=== PATIENT | male | born 1995 | race Caucasian/White ===

== ENCOUNTER 2020-08-24 15:44 | Emergency (ER) | payer OTHER, SELFPAY ==
--- NOTE | 2020-08-24 | XR_ITS ---
EXAMINATION: RIGHT ANKLE 3 VIEWS CLINICAL INFORMATION: Right ankle pain. Twisting injury. Swelling. COMPARISON: None. TECHNIQUE: AP, lateral, oblique views of the right ankle were obtained. FINDINGS: There is soft tissue swelling overlying the lateral malleolus. There are no fractures or dislocations. There is no ankle joint effusion. XR/XR ankle RT min 3V IMPRESSION: Soft tissue swelling without fracture or dislocation.
[2020-08-24 16:16] VITALS: BP 155/95; PULSE 80; RESP 18; TEMP 36.1; O2SAT 98; BMI 38.3
--- NOTE | 2020-08-24 17:39 | ED.LOWEXIN ---
HPI - Extremity Injury (Lower) General Chief Complaint: Extremity Injury, Lower Stated Complaint: ankle pain Time Seen by Provider: 08/24/20 17:39 Source: patient Mode of arrival: wheelchair Limitations: no limitations History of Present Illness HPI Narrative: 25-year-old otherwise healthy presenting with complaint of right ankle pain going up the stairs missed step and twisted his ankle. States having swelling and pain worsening with exertion /ambulation. No other fall or injury. Occurred today at home. Type of Injury: eversion Place: home Severity: moderate Severity scale (1-10): 5 Relieving factors: nothing Exacerbating factors: weight bearing Other symptoms: none Treatments prior to arrival: cold therapy Related Data Previous Rx's Medication Instructions Recorded ibuprofen 800 mg PO Q8H PRN #30 tab 08/24/20 Allergies Allergy/AdvReac Type Severity Reaction Status Date / Time Penicillins Allergy Anaphylaxis Verified 08/24/20 16:23 APPLES AdvReac Diarrhea Uncoded 08/24/20 16:23 Review of Systems Review of Systems: Constitutional: No Weight loss, No Fever, No Chills, No Night Sweats, No Fatigue, No Malaise ENT/Mouth: No Hearing loss, No Ear Pain, No Nasal Congestion, No Sinus Pain, No Hoarseness, No sore throat, No Rhinorrhea, No Swallowing Difficulty Eyes: No Eye Pain, No Swelling, No Redness, No Foreign Body, No Discharge, No Vision Changes Cardiovascular: No Chest Pain, No SOB, No Dyspnea on Exertion, No Orthopnea, No Edema, No Palpitations Respiratory: No Cough, No Sputum, No Wheezing, No Smoke Exposure, No Dyspnea Musculoskeletal: As noted in HPI Skin: No Skin Lesions, No rash Neuro: No Weakness, No Numbness, No Paresthesias, No Loss of Consciousness, No Dizziness, No Headache Psych: Heme/Lymph: No Bruising, No Bleeding,No Lymphadenopathy Endocrine: No Polyuria, No Polydipsia, No Temperature Intolerance Yes all other systems are reviewed and are negative [facility] Past Medical History Medical History (Updated 08/24/20 @ 17:44 by Cory Manzano NP) Thyroid cancer Surgical History (Updated 08/24/20 @ 16:20 by Claire Galindo) History of thyroid surgery Social History Social History Smoking Status: Former smoker Use of substances other than those prescribed or required for medical reasons: No Advance Directives: No Advance Directives Information Provided: No Physical Exam Vital Signs: Vital Signs: Vital Signs Temp Pulse Resp BP Pulse Ox 08/24/20 16:16 96.9 F 80 18 155/95 H 98 Body Mass Index 38.3 reviewed Const: General: cooperative and healthy appearing; No acute distress or intoxicated appearing Nutritional Appearance: average body habitus Orientation/consciousness: patient oriented x3 HENMT: Head: Yes normal to inspection Ears: hearing grossly normal bilaterally Neck: Neck: Yes normal visual inspection, No positive Brudzinski's sign, No positive Kernig's sign and No tender Thyroid: Thyroid normal Chest: Chest palpation & inspection: normal inspection of the chest Resp: Effort & Inspection: normal respiratory effort Cardio: Jugular venous distension: no JVD : General: Yes no CVA tenderness Back/Spine/Pelvis: Back: no CVA tenderness Skin: General skin exam: no rashes or lesions noted Neuro: General: patient oriented x3 Extrem: Other: right ankle swelling to the lateral aspect. General: Yes normal to inspection MDM - Extremity Injury (Lower) MDM Narrative Medical decision making narrative: aircast/crutches Differential Diagnosis Differential diagnosis: Likely ankle sprain and strain and ankle fracture; Unlikely acute internal derangement of knee, fracture of femur, fracture of hip, puncture wound of foot and fracture of toe Medical Records Attestation: I reviewed the patient's medical records. Imaging Data Ankle x-ray: Radiologist's impression: [address] [address] XRay Report Signed Patient: Donald CancinoMR#: [id number] : 1995Acct:[id number] Age/Sex: 25 / MADM Date: 08/24/20 Loc: HO.ED Attending Dr: Ordering Physician: CORY MANZANO NP Date of Service: 08/24/20 Procedure(s): XR ankle RT min 3V Accession Number(s): [id number] cc: CORY MANZANO NP~ EXAMINATION: RIGHT ANKLE 3 VIEWS CLINICAL INFORMATION: Right ankle pain. Twisting injury. Swelling. COMPARISON: None. TECHNIQUE: AP, lateral, oblique views of the right ankle were obtained. FINDINGS: There is soft tissue swelling overlying the lateral malleolus. There are no fractures or dislocations. There is no ankle joint effusion. XR/XR ankle RT min 3V IMPRESSION: Soft tissue swelling without fracture or dislocation. Dictated By:RAISSA BARFIELD MD Signed By:<Electronically signed by RAISSA BARFIELD MD in OV>08/24/20 1710 DD/ 1632 TD/TT: Sleeve Bottom Feller: WP Discharge Plan Discharge Clinical Impression: Ankle sprain and strain Patient Disposition: Home, Self-Care Instructions: Ankle Sprain (ED) Additional Instructions: ice, elevate, compress is Use crutches and Aircast as instructed Return if any concerns or worsening symptoms otherwise follow up with her primary care doctor as discussed Thank you Prescriptions: New ibuprofen 800 mg tablet 800 mg PO Q8H PRN (Reason: pain) Qty: 30 RF: 0 Referrals: Jonathan Gilmore MD [Physician] - 1 week Stand Alone Forms: Work/School Release
== END 2020-08-24 17:59 | disposition home or self-care (01) ==
PROVIDERS: Emergency Provider Emergency Medicine
DX: S93.401A Sprain of unspecified ligament of right ankle, initial encounter (principal); M25.571 Pain in right ankle and joints of right foot; W10.9XXA Fall (on) (from) unspecified stairs and steps, initial encounter; Y93.01 Activity, walking, marching and hiking; Y92.009 Unspecified place in unspecified non-institutional (private) residence as the place of occurrence of the external cause; Z87.891 Personal history of nicotine dependence
CPT/HCPCS: 73610; 99283

== ENCOUNTER 2020-09-14 14:52 | Outpatient (REF) | payer OTHER, SELFPAY ==
--- NOTE | 2020-09-14 14:53 | XR_ITS ---
EXAMINATION: XR FOOT, RIGHT CLINICAL INFORMATION: Pain in the right foot COMPARISON: X-rays of the right ankle August 2020 TECHNIQUE: AP, lateral, and oblique views of the right foot. FINDINGS: The bones and soft tissues are normal. No fracture. Alignment is anatomic. Joint spaces are maintained. XR/XR foot RT min 3V IMPRESSION: Normal right foot.
== END 2020-09-14 14:53 | disposition home or self-care (01) ==
LOC: HO.HOSX 14:52
PROVIDERS: Visit Provider Physician Assistant
DX: S93.601A Unspecified sprain of right foot, initial encounter (principal)
CPT/HCPCS: 73630

== ENCOUNTER → 2020-10-11 12:55 | Outpatient (BNVA) | payer OTHER, SELFPAY | PROVIDERS: Visit Provider Physician Assistant | DX: Z76.89 Persons encountering health services in other specified circumstances (principal) ==

== ENCOUNTER 2020-10-13 12:29 | Outpatient (REF) | payer OTHER, SELFPAY ==
[2020-10-13 13:01] LABS: MANUAL DIFF FLAG NO
[2020-10-13 13:30] LABS: Alanine Aminotransferase 78 U/L (0-40); Albumin Level 4.9 g/dL (3.5-5.0); Alkaline Phosphatase 85 U/L (39-117); Anion Gap 13 (12-20); Aspartate Amino Transferase 46 U/L (5-37); Bilirubin Total 0.5 mg/dL (0.0-1.0); Blood Urea Nitrogen 13 mg/dL (9-16); Calcium 9.6 mg/dL (8.4-10.2); Carbon Dioxide 31 mmol/L (22-29); Chloride 99 mmol/L (96-108); Cholesterol 444 mg/dL; Estimated Glomerular Filt Rate 49; Glucose Random 102 mg/dL (60-115); HDL Cholesterol 47 mg/dL; LDL Cholesterol Calculated 349 mg/dl; Sodium 139 mmol/L (135-145); Total Protein 8.8 g/dL (6.5-8.0); Triglycerides 243 mg/dL
[2020-10-13 13:35] LABS: Basophils Percent Auto 0.3 % (0-2); Eosinophils Absolute Auto 0.1 X10*3/uL (0.0-0.4); Eosinophils Percent Auto 0.9 % (0-4); Hematocrit 48.2 % (42-52); Hemoglobin 15.5 g/dl (14.0-18.0); Imm Gran Abs Auto 0.01 X10*3/uL (0.00-0.03); Imm Gran Pct Auto 0.2 % (0.0-0.4); Lymphocytes Absolute Auto 2.4 X10*3/uL (1.2-4.9); Lymphocytes Percent Auto 36.6 % (20-40); Mean Corpuscular HGB Conc 32.2 g/dl (31.0-36.0); Mean Corpuscular Hemoglobin 27.8 pg (27.0-33.0); Mean Corpuscular Volume 86.5 fL (80-98); Mean Platelet Volume 11.1 fL (9.4-12.4); Monocytes Absolute Auto 0.4 X10*3/uL (0.1-1.2); Monocytes Percent Auto 5.6 % (2-11); Neutrophils Absolute Auto 3.6 X10*3/uL (2.0-8.3); Neutrophils Percent Auto 56.4 % (45-73); Platelet Count 278 X10*3/uL (160-400); Red Blood Count 5.57 X10*6/uL (4.60-5.80); Red Cell Distribution Width 14.6 % (11.0-16.0); White Blood Count 6.5 X10*3/uL (4.8-10.8)
[2020-10-13 13:44] LABS: Estimated Average Glucose 120 mg/dL; Hemoglobin A1C 163.1905 umol/L; Hemoglobin A1c % 5.8 %
[2020-10-13 17:37] LABS: Thyroid Stimulating Hormone > 100.00 uIU/mL (0.32-4.0)
== END 2020-10-13 12:30 | disposition home or self-care (01) ==
LOC: HO.LAB 12:29
PROVIDERS: PCP Internal Medicine; Visit Provider Internal Medicine
DX: E66.01 Morbid (severe) obesity due to excess calories (principal); E89.0 Postprocedural hypothyroidism; I10 Essential (primary) hypertension; S93.491S Sprain of other ligament of right ankle, sequela; Z00.01 Encounter for general adult medical examination with abnormal findings; Z85.850 Personal history of malignant neoplasm of thyroid
CPT/HCPCS: 36415; 80053; 80061; 83036; 84443; 85025

== ENCOUNTER 2020-12-25 11:00 | Outpatient (RCR) | payer OTHER, SELFPAY ==
--- NOTE | 2020-11-06 11:50 | MHC.PT.EP ---
[facility] [place] Office [place] [facility] [place] Office [address] Frederick Beckham [address] [phone] F: [phone] F: [phone] F: [phone] F: [phone] Physical Therapy Plan of Care Date of Evaluation: 11/06/20 Date of Surgery: N/A Diagnosis: unspecified sprain of right foot, initial encounter Assessment: pt presents w/ range, strength, and functional movement pattern impairments secondary to ankle sprain sustained in August 2020. pt presents to physical therapy with pain, decreased range of motion, decreased strength, impaired functional mobility, impaired postural awareness, and gait deviations. pt is a good candidate for skilled PT due to age, potential remediation of impairments, typical disease/condition progression and prognosis, comorbidities, and motivation. pt would benefit from tailored strengthening and stretching exercise program, functional training, gait training, postural re-training, neuromuscular re-education, modalities as needed for pain, and equipment safety demonstration. Frequency and Duration: The patient will be seen 2x/wk for 5 wks Short Term Goals: pt will be I w/ HEP to promote self-management of condition. pt will improve R ankle DF to neutral to normalize gait pattern over even ground. Chemistry Faculty Member Goals: pt will report statistically significant improvement in self-reported outcome measure, LEFI, to promote return to PLOF. pt will report <1/10 R ankle pain w/ standing for full work shift (>8 hr) to facilitate full return to work. Treatment Plan: Modalities to reduce pain, spasms and effusion. Manual therapy to restore motion and function. Therapeutic exercise to improve strength and flexibility. Neuromuscular re-education for posture and balance. Therapeutic activities to return to functional activities of daily living. Electronically signed by: Briana Weems PT, DPT Please sign and return to therapist. Thank you for your referral.
--- NOTE | 2020-12-26 14:46 | MHC.PT.DC ---
[facility] [place] [facility] [place] Office [place] Office [address] Frederick Beckham [address] [phone] F: [phone] F: [phone] F: [phone] F: [phone] Physical Therapy Discharge Report Diagnosis: unspecified sprain of right foot, initial encounter Date of Surgery: N/A Date of Evaluation: 11/06/20 Date of Discharge: 12/26/20 Treatments to Date: 15 Cancellations to Date: 0 No Shows to Date: 0 Discharge Status: Achieved Goals Improved Function Independent with HEP Discharge Summary: The patient has improved regarding his pain severity, frequency, and ability to tolerate therapeutic exercises and functional activities. He reports only mild pain after being up on his feet all day at work. He is able to ascend and descend the stairs with no pain. He has a symmetrical gait pattern. He is independent with his home exercise program. The patient is discharged from this physical therapy plan of care at this time. Electronically signed by: Briana Weems PT, DPT Please sign and return to therapist. Thank you for your referral.
== END 2020-12-26 14:46 | disposition other institution (70) ==
LOC: HO.PT 11:00
PROVIDERS: PCP Internal Medicine; Visit Provider Physician Assistant
DX: S93.601D Unspecified sprain of right foot, subsequent encounter (principal)
CPT/HCPCS: 97110; 97112; 97140; 97161; 97164; 97530

== ENCOUNTER 2021-01-23 09:02 | Outpatient (REF) | payer OTHER, SELFPAY ==
--- NOTE | ~2021-01-23 | US_ITS ---
EXAMINATION: US RETROPERITONEAL LIMITED (RENAL ONLY) CLINICAL INFORMATION: Chronic kidney disease stage III. COMPARISON: None TECHNIQUE: Real-time imaging of the kidneys. FINDINGS: RIGHT KIDNEY: 10.9 x 6.4 x 6.2 cm (SAG x AP x TRV). The kidney is normal in size, contour, and echogenicity. Renal cortical thickness is normal. No calculi or focal parenchymal lesions. No hydronephrosis. LEFT KIDNEY: 11.1 x 6.6 x 4.6 cm (SAG x AP x TRV). The kidney is normal in size, contour, and echogenicity. Renal cortical thickness is normal. No calculi or focal parenchymal lesions. No hydronephrosis. US/US renal BI IMPRESSION: Normal renal ultrasound.
[2021-01-23 10:33] LABS: MANUAL DIFF FLAG NO
[2021-01-23 10:37] LABS: Basophils Percent Auto 0.5 % (0-2); Eosinophils Absolute Auto 0.1 X10*3/uL (0.0-0.4); Eosinophils Percent Auto 1.3 % (0-4); Hematocrit 44.7 % (42-52); Hemoglobin 14.7 g/dl (14.0-18.0); Imm Gran Abs Auto 0.02 X10*3/uL (0.00-0.03); Imm Gran Pct Auto 0.3 % (0.0-0.4); Lymphocytes Absolute Auto 2.4 X10*3/uL (1.2-4.9); Mean Corpuscular HGB Conc 32.9 g/dl (31.0-36.0); Mean Corpuscular Hemoglobin 29.2 pg (27.0-33.0); Mean Corpuscular Volume 88.9 fL (80-98); Mean Platelet Volume 10.8 fL (9.4-12.4); Monocytes Absolute Auto 0.5 X10*3/uL (0.1-1.2); Monocytes Percent Auto 6.4 % (2-11); Neutrophils Absolute Auto 4.5 X10*3/uL (2.0-8.3); Neutrophils Percent Auto 59.5 % (45-73); Platelet Count 265 X10*3/uL (160-400); Red Blood Count 5.03 X10*6/uL (4.60-5.80); Red Cell Distribution Width 13.5 % (11.0-16.0); White Blood Count 7.5 X10*3/uL (4.8-10.8)
[2021-01-23 12:46] LABS: Anion Gap 17 (12-20); Blood Urea Nitrogen 15 mg/dL (9-16); Calcium 9.5 mg/dL (8.4-10.2); Carbon Dioxide 24 mmol/L (22-29); Chloride 103 mmol/L (96-108); Estimated Glomerular Filt Rate > 60; Potassium 4.4 mmol/L (3.3-5.1); Sodium 140 mmol/L (135-145)
== END 2021-01-23 09:03 | disposition home or self-care (01) ==
LOC: HO.US 09:02
PROVIDERS: Absent Provider Internal Medicine Hypertension Specialist; PCP Internal Medicine; Visit Provider Orthopaedic Surgery
DX: N18.31 Chronic kidney disease, stage 3a (principal)
CPT/HCPCS: 36415; 76775; 80051; 82310; 82565; 84520; 85025

== ENCOUNTER 2021-01-24 | Outpatient (REF) | payer OTHER, SELFPAY ==
[2021-01-24 14:16] LABS: Creatinine (CrCl) 1.33 mg/dL (0.5-1.4)
[2021-01-24 14:17] LABS: Total Volume 24 Hour Urine 1050 mL
[2021-01-24 14:38] LABS: Creatinine Clearance 100.6 mL/min (85-125); Creatinine, 24Hr Urine 1.9 G/Day (1.0-2.0); Creatinine, mg/dL 183.63; Protein 24 Hr Urine 147 mg/Day (<150); Protein mg/dL 14 mg/dL
== END 2021-01-24 00:01 | disposition home or self-care (01) ==
LOC: HO.LNP
PROVIDERS: Visit Provider Internal Medicine Hypertension Specialist
DX: N18.31 Chronic kidney disease, stage 3a (principal)
CPT/HCPCS: 82575; 84156

== ENCOUNTER 2021-02-09 09:30 | Outpatient (REF) | payer OTHER, SELFPAY ==
[2021-02-09 10:01] LABS: COVID-19 Test Positive (Negative); IDNOW Serial# 55D5AD1C
== END 2021-02-09 09:31 | disposition home or self-care (01) ==
LOC: HO.LAB 09:30
PROVIDERS: Visit Provider Internal Medicine
DX: Z20.822 Contact with and (suspected) exposure to COVID-19 (principal)
CPT/HCPCS: 36415; 87635; C9803

== ENCOUNTER 2021-02-19 13:42 | Outpatient (REF) | payer OTHER, SELFPAY ==
[2021-02-19 14:23] LABS: COVID-19 Test Negative (Negative); IDNOW Serial# 55D5AD1C
== END 2021-02-19 13:43 | disposition home or self-care (01) ==
LOC: HO.LAB 13:42
PROVIDERS: Visit Provider Internal Medicine
DX: Z20.822 Contact with and (suspected) exposure to COVID-19 (principal)
CPT/HCPCS: 36415; 87635; C9803

== ENCOUNTER 2023-06-06 10:34 | Outpatient (REF) | payer MEDICAID, SELFPAY ==
[2023-06-06 15:18] LABS: Alanine Aminotransferase 107 U/L (0-40); Albumin Level 4.6 g/dL (3.5-5.0); Alkaline Phosphatase 78 U/L (39-117); Anion Gap 20 (12-20); Aspartate Amino Transferase 52 U/L (5-37); Bilirubin Direct 0.2 mg/dL (0.0-0.5); Bilirubin Total 0.6 mg/dL (0.0-1.0); Blood Urea Nitrogen 9 mg/dL (9-16); Calcium 9.8 mg/dL (8.4-10.2); Carbon Dioxide 20 mmol/L (22-29); Chloride 104 mmol/L (96-108); Cholesterol 129 mg/dL; Estimated Glomerular Filt Rate > 60; Glucose Random 140 mg/dL (60-115); HDL Cholesterol 36 mg/dL; Iron 110 mcg/dL (45-160); LDL Cholesterol Calculated 68 mg/dl; Percent Iron Saturation 33 % (15-50); Potassium 3.9 mmol/L (3.3-5.1); Sodium 140 mmol/L (135-145); Total Iron Binding Capacity 336 mcg/dL (228-428); Total Protein 8.7 g/dL (6.5-8.0); Triglycerides 129 mg/dL; Unsaturated Iron Binding 226 ug/dL
[2023-06-06 15:25] LABS: Ferritin 145 ng/mL (20-250); TSH reflex Free T4 25.18 uIU/mL (0.32-4.0)
[2023-06-06 16:51] LABS: Free T4 (Free Thyroxine) 0.89 ng/dL (0.71-1.85)
[2023-06-07 04:26] LABS: HIV AB/AG Nonreactive (Nonreactive); HIV Num 1 0.05 S/CO (0.00-0.99)
[2023-06-07 04:31] LABS: ~Hepatitis C Antibody Nonreactive (Nonreactive)
[2023-06-09 18:54] LABS: Ceruloplasmin 32 mg/dL (18-36)
[2023-06-11 16:03] LABS: Mitochondrial Antibodies NEGATIVE (NEGATIVE)
== END 2023-06-06 10:35 | disposition home or self-care (01) ==
LOC: HO.HHCL 10:34
PROVIDERS: Visit Provider Family Medicine
DX: Z11.4 Encounter for screening for human immunodeficiency virus [HIV] (principal); R74.8 Abnormal levels of other serum enzymes; E78.5 Hyperlipidemia, unspecified; A64 Unspecified sexually transmitted disease; E03.9 Hypothyroidism, unspecified; I10 Essential (primary) hypertension
CPT/HCPCS: 36415; 80048; 80061; 80076; 82390; 82728; 83540; 84439; 84443; 86255; 86256; 86803; 87389

== ENCOUNTER 2023-06-10 12:08 | Outpatient (REF) | payer MEDICAID, SELFPAY ==
[2023-06-10 14:34] LABS: Creatinine Urine 209.86 mg/dL; Microalbum/Creatinine Ratio Ur 4.7 ug/mg cr
== END 2023-06-10 12:09 | disposition home or self-care (01) ==
LOC: HO.HHCLNP 12:08
PROVIDERS: Visit Provider Family Medicine
DX: I10 Essential (primary) hypertension (principal)
CPT/HCPCS: 82043

== ENCOUNTER 2023-07-18 11:15 | Outpatient (REF) | payer MEDICAID, SELFPAY ==
[2023-07-18 15:58] LABS: Alanine Aminotransferase 76 U/L (0-40); Albumin Level 4.6 g/dL (3.5-5.0); Alkaline Phosphatase 72 U/L (39-117); Aspartate Amino Transferase 45 U/L (5-37); Bilirubin Direct 0.1 mg/dL (0.0-0.5); Bilirubin Total 0.3 mg/dL (0.0-1.0); Total Protein 8.6 g/dL (6.5-8.0)
[2023-07-18 16:43] LABS: Free T4 (Free Thyroxine) 1.02 ng/dL (0.71-1.85)
== END 2023-07-18 11:16 | disposition home or self-care (01) ==
LOC: HO.HHCL 11:15
PROVIDERS: Visit Provider Family Medicine
DX: E03.9 Hypothyroidism, unspecified (principal); E11.00 Type 2 diabetes mellitus with hyperosmolarity without nonketotic hyperglycemic-hyperosmolar coma (NKHHC)
CPT/HCPCS: 36415; 80076; 84439; 84443

== ENCOUNTER 2023-10-13 13:28 | Outpatient (REF) | payer MEDICAID, SELFPAY | END 2023-10-13 13:29 | disposition home or self-care (01) | LOC: HO.HHCLNP 13:28 | PROVIDERS: Visit Provider Emergency Medicine | DX: R05.9 Cough, unspecified (principal) | CPT/HCPCS: 87070 ==

== ENCOUNTER 2024-07-22 10:23 | Outpatient (REF) | payer OTHER, SELFPAY ==
[2024-07-22 11:18] LABS: MANUAL DIFF FLAG NO
[2024-07-22 11:45] LABS: Basophils Percent Auto 0.4 % (0-2); Eosinophils Absolute Auto 0.1 X10*3/uL (0.0-0.4); Eosinophils Percent Auto 0.7 % (0-4); Hemoglobin 13.5 g/dl (14.0-18.0); Imm Gran Abs Auto 0.03 X10*3/uL (0.00-0.03); Imm Gran Pct Auto 0.4 % (0.0-0.4); Lymphocytes Absolute Auto 1.8 X10*3/uL (1.2-4.9); Lymphocytes Percent Auto 25.6 % (20-40); Mean Corpuscular HGB Conc 32.9 g/dl (31.0-36.0); Mean Corpuscular Hemoglobin 27.4 pg (27.0-33.0); Mean Corpuscular Volume 83.3 fL (80.0-98.0); Mean Platelet Volume 10.5 fL (9.4-12.4); Monocytes Absolute Auto 0.5 X10*3/uL (0.1-1.2); Monocytes Percent Auto 6.5 % (2-11); Neutrophils Absolute Auto 4.8 x10*3/uL (2.0-8.3); Neutrophils Percent Auto 66.4 % (45-73); Platelet Count 281 X10*3/uL (160-400); Red Blood Count 4.92 X10*6/uL (4.60-5.80); Red Cell Distribution Width 12.9 % (11.0-16.0); White Blood Count 7.2 X10*3/uL (4.8-10.8)
[2024-07-22 11:49] LABS: Estimated Average Glucose 171 mg/dL; Hemoglobin A1c % 7.6 % (<6.0)
[2024-07-22 12:22] LABS: Alanine Aminotransferase 59 U/L (0-40); Albumin Level 4.2 g/dL (3.5-5.0); Alkaline Phosphatase 81 U/L (39-117); Anion Gap 11 (12-20); Aspartate Amino Transferase 38 U/L (5-37); Bilirubin Direct 0.1 mg/dL (0.0-0.5); Bilirubin Total 0.4 mg/dL (0.0-1.0); Blood Urea Nitrogen 11 mg/dL (9-16); Calcium 9.6 mg/dL (8.4-10.2); Carbon Dioxide 26 mmol/L (22-29); Chloride 109 mmol/L (96-108); Cholesterol 119 mg/dL (<200); Estimated Glomerular Filt Rate > 60; Glucose Random 126 mg/dL (60-115); HDL Cholesterol 32 mg/dL (>40); Iron 64 mcg/dL (45-160); LDL Cholesterol Calculated 54 mg/dL (<100); Percent Iron Saturation 21 % (15-50); Potassium 4.2 mmol/L (3.3-5.1); Sodium 142 mmol/L (135-145); Total Iron Binding Capacity 298 mcg/dL (228-428); Triglycerides 169 mg/dL (<150); Unsaturated Iron Binding 234 ug/dL
[2024-07-22 12:37] LABS: HBS Num1 1.71 mIU/mL (0-7.99); HBc Num1 0.15 S/CO (0.00-0.79); HBsAGNum1 0.41 S/CO (0.00-0.99); Hepatitis A Antibody IgM 0.13 Index (0-0.79); Hepatitis B Core Antibody Nonreactive (Nonreactive); Hepatitis B Surface Antigen Negative (Negative); ~HepC Num1 0.15 S/CO (0.00-0.79); ~Hepatitis A Antibody IgM Nonreactive (Nonreactive); ~Hepatitis B Surface Antibody NONREACTIVE (Nonreactive); ~Hepatitis C Antibody Nonreactive (Nonreactive)
[2024-07-22 12:41] LABS: Ferritin 167 ng/mL (20-250); TSH reflex Free T4 0.12 uIU/mL (0.32-4.0)
[2024-07-22 13:21] LABS: Free T4 (Free Thyroxine) 1.38 ng/dL (0.71-1.85)
[2024-07-23 22:18] LABS: Ceruloplasmin 29 mg/dL (14-30)
[2024-07-26 13:08] LABS: Alpha Fetoprotein 3.6 ng/mL (<6.1)
[2024-07-26 13:49] LABS: Anti Nuclear Antibody Screen NEGATIVE (NEGATIVE)
[2024-07-27 12:23] LABS: Smooth Muscle Antibody <20 U (<20)
[2024-07-28 11:34] LABS: Mitochondrial Antibodies NEGATIVE (NEGATIVE)
== END 2024-07-22 10:24 | disposition home or self-care (01) ==
LOC: HO.HHCL 10:23
PROVIDERS: Visit Provider Family Medicine
DX: E11.00 Type 2 diabetes mellitus with hyperosmolarity without nonketotic hyperglycemic-hyperosmolar coma (NKHHC) (principal); E78.2 Mixed hyperlipidemia; E03.9 Hypothyroidism, unspecified; R74.8 Abnormal levels of other serum enzymes; K62.5 Hemorrhage of anus and rectum
CPT/HCPCS: 36415; 80048; 80061; 80076; 82105; 82390; 82728; 83036; 83540; 84439; 84443; 85025; 86015; 86038; 86381; 86704; 86706; 86709; 86803; 87340

== ENCOUNTER 2024-10-06 10:13 | Outpatient (REF) | payer MEDICAID, SELFPAY ==
[2024-10-06 11:40] LABS: Alanine Aminotransferase 47 U/L (0-40); Albumin Level 4.5 g/dL (3.5-5.0); Alkaline Phosphatase 83 U/L (39-117); Aspartate Amino Transferase 40 U/L (5-37); Bilirubin Direct 0.1 mg/dL (0.0-0.5); Bilirubin Total 0.3 mg/dL (0.0-1.0); Cholesterol 124 mg/dL (<200); HDL Cholesterol 36 mg/dL (>40); LDL Cholesterol Calculated 59 mg/dL (<100); Total Protein 8.6 g/dL (6.5-8.0); Triglycerides 146 mg/dL (<150)
[2024-10-06 11:56] LABS: TSH reflex Free T4 1.04 uIU/mL (0.32-4.0)
[2024-10-06 12:06] LABS: Estimated Average Glucose 186 mg/dL; Hemoglobin A1C 230.9323 umol/L; Hemoglobin A1c % 8.1 % (<6.0); Total Hemoglobin (HGBA1C) 3540.8459 umol/L
== END 2024-10-06 10:14 | disposition home or self-care (01) ==
LOC: HO.HHCL 10:13
PROVIDERS: Visit Provider Family Medicine
DX: E11.00 Type 2 diabetes mellitus with hyperosmolarity without nonketotic hyperglycemic-hyperosmolar coma (NKHHC) (principal); E03.9 Hypothyroidism, unspecified; R74.8 Abnormal levels of other serum enzymes; E78.49 Other hyperlipidemia
CPT/HCPCS: 36415; 80061; 80076; 83036; 84443

== ENCOUNTER 2024-11-19 08:44 | Outpatient (REF) | payer OTHER, SELFPAY ==
--- NOTE | ~2024-11-19 | US_ITS ---
CLINICAL HISTORY: chornic transaminitis Exam: 1. US abdomen complete 2. Duplex ultrasound of the main portal vein. Comparison: US - US RENAL BI - 01/23/21 09:14 EDT Findings: The visualized pancreas is normal. The aorta and inferior vena cava are normal caliber. The liver is normal in size. Dense increased hepatic echotexture without focal lesion or intrahepatic biliary ductal dilatation. The common duct is 4 mm in diameter. The gallbladder is normal. There is no sonographic Marvin sign. The right kidney is 11.6 cm in length. The left kidney is 12.3 cm in length. The spleen is normal. No ascites. Duplex evaluation of the main portal vein was performed. This included real-time grayscale, color spectral Doppler analysis, and color Doppler flow imaging. Main portal vein is patent with hepatopetal flow. IMPRESSION: Densely echogenic liver. This can be seen with fatty infiltration or medical liver disease. Otherwise, unremarkable abdominal ultrasound. This document has been electronically signed by: James Anders MD on 11/20/2024 08:37:34
== END 2024-11-19 08:45 | disposition home or self-care (01) ==
LOC: HO.US 08:44
PROVIDERS: PCP Family Medicine; Visit Provider Family Medicine
DX: R74.8 Abnormal levels of other serum enzymes (principal)
CPT/HCPCS: 76700

== ENCOUNTER → 2024-11-19 08:46 | Outpatient (BNV) | payer OTHER, SELFPAY | PROVIDERS: PCP Family Medicine; Visit Provider Radiology Diagnostic Radiology | DX: R74.8 Abnormal levels of other serum enzymes (principal) | CPT/HCPCS: 76700 ==

== ENCOUNTER 2025-02-28 10:18 | Outpatient (REF) | payer SELFPAY ==
[2025-02-28 11:44] LABS: Alanine Aminotransferase 52 U/L (0-40); Albumin Level 4.6 g/dL (3.5-5.0); Alkaline Phosphatase 94 U/L (39-117); Anion Gap 12 (12-20); Aspartate Amino Transferase 36 U/L (5-37); Bilirubin Direct 0.1 mg/dL (0.0-0.5); Bilirubin Total 0.4 mg/dL (0.0-1.0); Blood Urea Nitrogen 13 mg/dL (9-16); Calcium 9.7 mg/dL (8.4-10.2); Carbon Dioxide 27 mmol/L (22-29); Chloride 102 mmol/L (96-108); Cholesterol 142 mg/dL (<200); Estimated Glomerular Filt Rate > 60; Glucose Random 140 mg/dL (60-115); HDL Cholesterol 40 mg/dL (>40); LDL Cholesterol Calculated 71 mg/dL (<100); Sodium 137 mmol/L (135-145); Total Protein 8.3 g/dL (6.5-8.0); Triglycerides 156 mg/dL (<150)
[2025-02-28 11:54] LABS: Creatinine Urine 52.86 mg/dL; Microalbumin Urine < 5.0 mg/L
--- OUTSIDE RECORDS SUMMARY | 2025-02-28 11:58 | XMS_ITS | Clinical Summary ---
Author Organization [facility] Facility Address [address] [place] [address] Care Team Providers Care Flare Man Name Role Phone Sharon Guerra MD Primary Care Provider Allergies Active Allergy Reactions Criticality Noted Date Comments Apple Juice Hives 01/04/2021 Penicillin G 10/03/2022 Other reaction(s): Anaphyllactic Penicillins Anaphylaxis High 01/04/2021 Medications levothyroxine (SYNTHROID, LEVOTHROID) 200 MCG tablet Take 200 mcg by mouth 1 (one) time each day 10/19/2020 Active rosuvastatin (CRESTOR) 40 MG tablet Take 40 mg by mouth 1 (one) time each day 12/09/2020 Active lisinopril-hydro CHLOROthiazide (PRINZIDE,ZESTOR ETIC) 20-12.5 MG per tablet Take 1 tablet by mouth 1 (one) time each day Active ezetimibe (ZETIA) 10 MG tablet Take 10 mg by mouth 1 (one) time each day Active Active Problems Problem Noted Date Diagnosed Date Stage 3a chronic kidney disease 10/03/2022 Chronic kidney disease 01/04/2021 Papillary thyroid carcinoma 01/04/2021 Overview (01/04/2021): Total Thyroidectomy 2019 Resolved Problems Problem Noted Date Diagnosed Date Resolved Date Cancer 01/04/2021 01/04/2021 Overview (01/04/2021): Thyroid cancer Family History Medical History Relation Comments Diabetes Father Diabetes Mother Cancer Paternal Grandfather Relation Status Comments Father Mother Paternal Grandfather Social History Tobacco Use Types Packs/Day Years Used Date Smoking Tobacco: Never Smokeless Tobacco: Never Tobacco Cessation:Counseling Given: No Alcohol Use Standard Drinks/Week Comments Yes 0 (1 standard drink = 0.6 oz pur e alcohol) 1 a month Sex and Gender Information Value Date Recorded Sex Assigned at Not on file Legal Sex Male 4:58 PM EST Gender Identity Not on file Sexual Orientation Not on file Last Filed Vital Signs Vital Sign Reading Time Taken Comments Blood Pressure 146/62 01/04/2021 1:07 PM EST Pulse 86 01/04/2021 1:07 PM EST Temperature - - Respiratory Rate - - Oxygen Saturation 97% 01/04/2021 1:07 PM EST Inhaled Oxygen Concentration - - Weight 141 kg (310 lb) 10/03/2022 2:37 PM EST Height 180.3 cm (5' 11 ) 02/09/2021 2:42 PM EDT Body Mass Index 43.24 02/09/2021 2:42 PM EDT Plan of Treatment Health Maintenance Due Date Last Done Comments Hepatitis B Vaccine (1 of 3 - 19+ 3-dose series) 02/07 Pneumococcal Vaccine: Peds ( 0 to 5 Years) and At-Risk Patients (6 to 49 Years) (1 of 2 - PCV) 2013 Influenza Vaccine (Season Ended) 2025 Insurance Medicaid [place] Medicaid [place] Care Teams Flare Man Relationship Specialty Start Date End Date Sharon Guerra MD [address] [place] [address] PCP - General 11/13/20
--- OUTSIDE RECORDS SUMMARY | 2025-02-28 11:58 | XMS_ITS | Encounter Summary ---
Author Organization [employer] Address [address] [place] [address] Care Team Providers Care Manager Hydraulic Name Role Phone Amelia Horne MD Primary Care Provider [phone]- [phone] Encounter Details Date Type Department Care Team ([facility] st Contact Info) Description 02/28/2025 Telephone [facility] MEDICINE [address] [place] [address] Amelia Horne MD [address] [place], [place] [id number] Social History Tobacco Use Types Packs/Day Years Used Date Smoking Tobacco: Never Smokeless Tobacco: Never Alcohol Answer Date Recorded How often do you have a drink containing alcohol ? 2 10/06/2024 Average Number of Drinks Not on file 024 Frequency of Binge Drinking Not on file 02/2024 Depression Answer Date Recorded Patient Health Questionnaire-9 Score 0 02/25/2024 Patient Health Questionnaire-9 Score 0 02/25/2024 Last PHQ-9: Questionnaire Data Not on file 0 02/25/2024 Housing Stability Answer Date Recorded What is your housing situation today? I have zeyad gonzalez 02/25/[address] you li ve. Do you have problems with any of the following? None of the above 02/25/2024 Food Insecurity Answer Date Recorded Within the past 12 months, y ou worried that your food would run out before you got money to buy more: Sometimes True 2024 Within the past 12 months,th e food you bought just didn't last and you didn't have enough money to get more: Sometimes True 12/28/2024 Transportation Answer Date Recorded In the past 12 months, has l ack of transportation kept you from medical appts, meetings, work or from getting things needed for daily living? No 02/25/2024 Utilities Answer Date Recorded In the past 12 months, has t he electric, gas, oil or water company threatened to shut off services in your home? No 02/25/2024 Depression Answer Date Recorded Patient Health Questionnaire-2 Score 0 02/28/2025 Internet Access Answer Date Recorded Internet Access Q1 Yes 12/28/2024 Internet Access Q2 Not on file 12/28/2024 Sex and Gender Information Value Date Recorded Sex Assigned at Male 09/02/2022 10:17 AM EDT Legal Sex Male 10:17 AM EDT Gender Identity Male 09/02/2022 10:17 AM EDT Sexual Orientation Straight 09/02/2022 10 :17 AM EDT documented as of this encounter Miscellaneous Notes * Telephone Encounter - Amelia Horne MD - 02/28/2025 10:05 AM EDT Please request notes from [facility] or [facility] due to history of thyroid cancer We just need the past records. Thank you. documented in this encounter Plan of Treatment Upcoming Encounters Date Type Department Care Team (Late st Contact Info) Description 03/01/2025 10:40 AM EDT Office Visit [facility] OPTOMETRY [address] [place] [address] 06/08/2025 10:15 AM EDT Office Visit [facility] MED[facility]INE [address] [place] [address] Amelia Horne MD [address] [place] [address] documented as of this encounter Visit Diagnoses Not on filedocumented in this encounter Additional Health Concerns Assessment Noted Time PHQ-9 Depression Total Score: 0 02/25/20 24 9:28 AM EDT documented as of this encounter Care Teams Manager Hydraulic Relationship Specialty Start Date End Date Amelia Horne MD [address] [place] [address] PCP - General Family Medicine 05/14/23 documented as of this encounter
--- OUTSIDE RECORDS SUMMARY | 2025-02-28 11:58 | XMS_ITS | Encounter Summary ---
Author Organization [employer] Address [address] [place] [address] [address] [place] [address] Care Team Providers Care Vehicle Washer Name Role Phone Kasia Aburto Primary Care Provider +1- [phone] Amelia Horne MD Primary Care Provider [phone]- [phone] Encounter Details Date Type Department Care Team (Late Contact Info) Description 01/28/2023 Abstract [facility] DIABETES/NTRN [address] [place], [place] [id number] Kasia Aburto FNP [address] [place] [address] Dept [place] [address] Social History Tobacco Use Types Packs/Day Years Used Date Smoking Tobacco: Never Smokeless Tobacco: Never Depression Answer Date Recorded Patient Health Questionnaire-9 Score 0 01/01/2023 Depression Answer Date Recorded Patient Health Questionnaire-2 Score 0 01/01/2023 Sex and Gender Information Value Date Recorded Sex Assigned at Male 09/02/2022 10:17 AM EDT Legal Sex Male 10:17 AM EDT Gender Identity Male 09/02/2022 10:17 AM EDT Sexual Orientation Straight 09/02/2022 10 :17 AM EDT COVID-19 Exposure Response Date Recorded In the last 10 days, have yo u been in contact with someone who was confirmed or suspected to have Coronavirus/COVID-19? No / Unsure 01/09/2023 3:21 PM EST documented as of this encounter Plan of Treatment Upcoming Encounters Date Type Department Care Team ([facility] Contact Info) Description 03/01/2025 10:40 AM EDT Office Visit [facility] OPTOMETRY [address] [place], [place] [id number] [phone] 06/08/2025 10:15 AM EDT Office Visit [facility] MEDICINE [address] [facility] [place] [address] Amelia Horne MD [address] [place] [address] documented as of this encounter Visit Diagnoses Not on filedocumented in this encounter Additional Health Concerns Assessment Noted Time PHQ-9 Depression Total Score: 0 01/02/20 10:56 AM EST documented as of this encounter Care Teams Vehicle Washer Relationship Specialty Start Date End Date Kasia Aburto FNP PCP - General Family Medicine 06/25/22 05/13/23 Amelia Horne MD [address] [place] [address] PCP - General Family Medicine 05/14/23 documented as of this encounter
--- OUTSIDE RECORDS SUMMARY | 2025-02-28 11:59 | XMS_ITS | Encounter Summary ---
Author Organization [employer] Address [address] [facility] [address] [place] [address] Care Team Providers Care Dosimetrist Name Role Phone Amelia Horne MD Primary Care Provider +1- [phone] Encounter Details Date Type Department Care Team (Late Contact Info) Description 06/03/2023 Orders Only [facility] MEDICINE [address] [place] [address] Mirna Frank FNP [address] [place] [address] Type 2 diabetes mellitus with hyperosmolarity without coma, without long-term current use of insulin ([facility]) (Primary Dx) Social History Tobacco Use Types Packs/Day Years [...] suspected to have Coronavirus/COVID-19? No / Unsure 05/08/2023 9:33 AM EDT documented as of this encounter Plan of Treatment Upcoming Encounters Date Type Department Care Team (Late st Contact Info) Description 03/01/2025 10:40 AM EDT Office Visit [facility] OPTOMETRY [address] [place] [address] 06/08/2025 10:15 AM EDT Office Visit [facility] MEDICINE [address] [place] [address] Amelia Horne MD [address] [place] [address] documented as of this encounter Visit Diagnoses Diagnosis Type 2 diabetes mellitus with hyperosmolarity without coma, without long-term current use of insulin ([facility])- Primary documented in this encounter Additional Health Concerns Assessment Noted Time PHQ-9 Depression Total Score: 0 01/02/20 10:56 AM EST documented as of this encounter Care Teams Dosimetrist Relationship Specialty Start Date End Date Amelia Horne MD [address] [place] [address] PCP - General Family Medicine 05/14/23 documented as of this encounter
--- OUTSIDE RECORDS SUMMARY | 2025-02-28 11:59 | XMS_ITS | Encounter Summary ---
Author Organization [employer] Address [address] [facility] [address] [place] [address] Care Team Providers Care Manager Client Name Role Phone Amelia Horne MD Primary Care Provider +1- [phone] Reason for Visit * Reason Onset Date Comments Chartprep 02/24/2025 Encounter Details Date Type Department Care Team ([facility] Contact Info) Description 02/24/2025 Telephone [facility] MEDICINE [address] [place] [address] Amelia Horne MD [address] [place] [address] Chartprep Social History Tobacco Use Types Packs/Day Years [...] Date Recorded Patient Health Questionnaire-2 Score 0 02/25/2024 Internet Access Answer Date Recorded Internet Access [...] encounter Miscellaneous Notes * Telephone Encounter - [place] - 02/24/2025 10:26 AM EDT ..Chart Prep Labs: not applicable Images: not applicable Vaccines due: Updated Referrals: Not Applicable Screenings: Eye Exam Overdue care gaps: A1C, Glucose, PQ9, Disability , and Oral Health Health Care Proxy documented in this encounter Plan of Treatment Upcoming Encounters Date Type Department Care Team (Late st Contact Info) Description 03/01/2025 10:40 AM EDT Office Visit [facility] OPTOMETRY [address] [place] [address] 06/08/2025 10:15 AM EDT Office Visit [facility] MEDICINE [address] [place] [address] Amelia Horne MD [address] [place] [address] documented as of this encounter Visit Diagnoses Not on filedocumented in this encounter Additional Health Concerns Assessment Noted Time PHQ-9 Depression Total Score: 0 02/25/20 9:28 AM EDT documented as of this encounter Care Teams Manager Client Relationship Specialty Start Date End Date Amelia Horne MD [address] [place] [address] PCP - General Family Medicine 05/14/23 documented as of this encounter
--- OUTSIDE RECORDS SUMMARY | 2025-02-28 11:59 | XMS_ITS | Encounter Summary ---
Author Organization [employer] Address [address] [facility] 7[address] [place] [address] Care Team Providers Care Technical Support Associate Name Role Phone Amelia Horne MD Primary Care Provider +1- [phone] Encounter Details Date Type Department Care Team (Late st Contact Info) Description 06/18/2023 Orders Only [facility] [address], [place] [phone] Amelia Horne MD [address], [place] [phone] Acquired hypothyroidism Social History Tobacco Use Types Packs/Day Years [...] Description 03/01/2025 10:40 AM EDT Office Visit [facility] [address] [place], [place] [phone] 06/08/2025 10:15 AM EDT Office Visit [facility] [address] [place] [address] Amelia Horne MD [address] [place] [address] Scheduled Orders Name Type Priority Associated Diagnoses Orde r Schedule TSH W/Reflex to FT4 Lab Routine Acquired hypothyroidism Expected: 06/18/2023 (Approximate), Expires: 06/18/2024 documented as of this encounter Visit Diagnoses Diagnosis Acquired hypothyroidism Unspecified hypothyroidism documented in this encounter Additional Health Concerns Assessment Noted Time PHQ-9 Depression Total Score: 0 01/02/20 10:56 AM EST documented as of this encounter Care Teams Technical Support Associate Relationship Specialty Start Date End Date Amelia Horne MD [address] [place] [address] PCP - General Family Medicine 05/14/23 documented as of this encounter
--- OUTSIDE RECORDS SUMMARY | 2025-02-28 11:59 | XMS_ITS | Encounter Summary ---
Author Organization [employer] Address [address] [facility] 7[address] [place] [address] Care Team Providers Care Senior Accountant Analyst Name Role Phone Kasia Aburto Primary Care Provider +1- [phone] Amelia Horne MD Primary Care Provider +1- [phone] Encounter Details Date Type Department Care Team (Late st Contact Info) Description 12/20/2022 Orders Only [facility] [address] [place] [address] Grecia Leon FNP [address] [place] [address] Prediabetes (Primary Dx); Elevated liver enzymes Social History Tobacco Use Types Packs/Day Years Used Date Smoking Tobacco: Never Smokeless Tobacco: Never Sex and Gender Information Value Date Recorded [...] suspected to have Coronavirus/COVID-19? No / Unsure 12/11/2022 5:50 PM EST documented as of this encounter Plan of Treatment Upcoming Encounters Date Type Department Care Team (Late st Contact Info) Description 03/01/2025 10:40 AM EDT Office Visit [facility] [address] [place] [address] 06/08/2025 10:15 AM EDT Office Visit [facility] [address] [place] [address] Amelia Horne MD [address] [place] [address] documented as of this encounter Procedures Procedure Name Priority Date/Time Associated Diagnosis Comments HEPATITIS B SURFACE AB IMMUNITY, QN Routine 12/31/2022 11:43 AM EST Elevated liver enzymes HEPATITIS C AB W/REFL TO HCV RNA, QN, PCR Routine 12/31/2022 11:43 AM EST Elevated liver enzymes HEPATITIS A ANTIBODY, TOTAL Routine 12/31/2022 11:43 AM EST Elevated liver enzymes HEPATITIS B CORE AB TOTAL Routine 12/31/2022 11:43 AM EST Elevated liver enzymes HEMOGLOBIN A1C Routine 12/31/2022 11:43 AM EST Prediabetes documented in this encounter Results * (ABNORMAL) Hemoglobin A1c (12/31/2022 11:43 AM EST) Hemoglobin A1c 7.9(H) <5.7 % of total Hgb [facility] [employer] Comment: For someone without known diabetes, a hemoglobin A1c value of 6.5% or greater indicates that they may have diabetes and this should be confirmed with a follow-up test. For someone with known diabetes, a value <7% indicates that their diabetes is well controlled and a value greater than or equal to 7% indicates suboptimal control. A1c targets should be individualized based on duration of diabetes, age, comorbid conditions, and other considerations. Currently, no consensus exists regarding use of hemoglobin A1c for diagnosis of diabetes for children. ?? Blood Venous blood specimen / Unknown 12/31/2022 11:43 AM EST 12/31/2022 11:44 AM EST Narrative [facility] - 01/01/2023 2:44 AM EST FASTING:YES FASTING: YES Grecia Leon [employer] [facility] LAB BLOOD ORDERABLES Final Res ult Performing Organization Address City/State/[facility] Co de Phone Number [address], [place] [address] [email or web address] [employer], ([address]) [place] [address] * Hepatitis C Antibody with Reflex to HCV, RNA, Quantitative, Real-Time PCR (12/31/2022 11:43 AM EST) Pathologist [facility] Hepatitis C Antibody NON-REACT JULES NON-REACT JULES [email or web address] [place] [facility] [facility] [employer] Index 0.05 <1.00 [email or web address] [place] [employer] Comment: HCV antibody was non-reactive. There is no laboratory evidence of HCV infection. In most cases, no further action is required. However, if recent HCV exposure is suspected, a test for HCV RNA (test code 83056) is suggested. For additional information please refer to http://T3 MOTION/faq/SOB27m7 (This link is being provided for informational/ educational purposes only.) Blood Venous blood specimen / Unknown 12/31/2022 11:43 AM EST 12/31/2022 11:44 AM EST Narrative [facility] - 01/01/2023 2:44 AM EST FASTING:YES FASTING: YES Grecia Leon [facility] LAB BLOOD ORDERABLES Final Res ult Performing Organization Address [facility] Co de Phone Number [address], [place] [address] [email or web address] [place] [employer], ([address]) [place] [address] * (ABNORMAL) Hepatitis B Surface Antibody Immunity, Quantitative (12/31/2022 11:43 AM EST) Pathologist [facility] Hepatitis B Surface Antibody Immunity, QN <5(L) > OR = 10 mIU/mL [email or web address] [place] [employer] Comment: PATIENT DOES NOT HAVE IMMUNITY TO HEPATITIS B VIRUS. For additional information, please refer to http://Bubble & Balm.Graduway/faq/AVR231 (This link is being provided for informational/ educational purposes only). 12/31/2022 11:4 3 AM EST 12/31/2022 11:44 AM EST Narrative [facility] - 01/01/2023 2:44 AM EST FASTING:YES FASTING: YES us Grecia Leon [employer] LAB BLOOD ORDERABLES Final Res ult Performing Organization Address [facility] Co de Phone Number [address], [facility] [address] [email or web address] [place] [facility] [address] [place] [address], ([address]2) [place] [address] * Hepatitis B Core Antibody, Total (12/31/2022 11:43 AM EST) Hepatitis B Core Antibody Total NON-REACT JULES NON-REACT JULES [email or web address] [place] [employer] Blood Venous blood specimen / Unknown 12/31/2022 11:43 AM EST 12/31/2022 11:44 AM EST Narrative [facility] - 01/01/2023 2:44 AM EST FASTING:YES FASTING: YES Grecia Phaleber [employer] LAB BLOOD ORDERABLES Final Res ult Performing Organization Address [facility] de Phone Number [address], [facility] [address] [email or web address] [place] [facility] [address] [place] [address], ([address]2) [place] [address] * (ABNORMAL) Hepatitis A Antibody IgG (12/31/2022 11:43 AM EST) Hepatitis A Antibody Total REACTIVE( A) NON-REACT JULES [email or web address] [place] [employer] Comment: For additional information, please refer to http://education.Probiodrug.Sciona/faq/YSQ002 (This link is being provided for informational/ educational purposes only.) Blood Venous blood specimen / Unknown 12/31/2022 11:43 AM EST 12/31/2022 11:44 AM EST Narrative [facility] - 01/01/2023 2:44 AM EST FASTING:YES FASTING: YES us Grecia Leon [employer] LAB BLOOD ORDERABLES Final Res ult [facility] [address] [facility] [place] [address] [email or web address] [facility] [address] [facility], ([address]) [place] [address] documented in this encounter Visit Diagnoses Diagnosis Prediabetes- Primary Other abnormal glucose Elevated liver enzymes Other nonspecific abnormal serum enzyme levels documented in this encounter Care Teams Senior Accountant Analyst Relationship Specialty Start Date End Date Kasia Aburto FNP PCP - General Family Medicine 06/25/22 05/13/23 Amelia Horne MD [address] [place] [address] PCP - General Family Medicine 05/14/23 documented as of this encounter
--- OUTSIDE RECORDS SUMMARY | 2025-02-28 11:59 | XMS_ITS | Encounter Summary ---
Author Organization [employer] Address [address] [place] [address] Care Team Providers Care Geophysical Laboratory Supervisor Name Role Phone Amelia Horne MD Primary Care Provider +1- [phone] Reason for Referral * Medications - Closed Specialty Diagnoses / Procedures Referred By Michael tyler Referred To Contact Diagnoses Type 2 diabetes mellitus with hyperosmolarity without coma, without long-term current use of insulin ([facility]) Amelia Horne MD [address] [place] [address] Phone: tel: fax: Referral ID Status Reason Start Date Expiration Date Visits Re quested Visits Authorized [id number] Closed 1 1 * Consultation (Routine) - Authorized Specialty Diagnoses / Procedures Referred By Michael tyler Referred To Contact Pharmacy Diagnoses Type 2 diabetes mellitus with hyperosmolarity without coma, without long-term current use of insulin ([facility]) Amelia Horne MD [address] [place] [address] Phone: tel: fax: Referral ID Status Reason Start Date Expiration Date Visits Requested Visits Authorized [id number] Authorized Consult and Treat 02/28/2025 02/28/2026 6 6 Scheduling Instructions No GLP due to thryoid cancer history Reason for Visit * Reason Comments Follow-up DM, HTN Encounter Details Date Type Department Care Team (Latest Contact Info) Description 02/28/2025 9:45 AM EDT Office Visit [facility] [address] [place] [address] Amelia Horne MD [address] [place] [address] Essential (primary) hypertension (Primary Dx); Type 2 diabetes mellitus with hyperosmolarity without coma, without long-term current use of insulin (CMS/HCC); BMI 40.0-44.9, adult ([facility]/HCC); Dietary counseling; Exercise counseling; Papillary thyroid carcinoma ([facility]/HCC); Mixed hyperlipidemia; Stage 3a chronic kidney disease ([facility]) Social History Tobacco Use Types Packs/Day Years [...] AM EDT documented as of this encounter Last Filed Vital Signs Vital Sign Reading Time Taken Comments Blood Pressure 135/81 02/28/2025 9:39 AM EDT Pulse 99 02/28/2025 9:39 AM EDT Temperature - - Respiratory Rate 20 02/28/2025 9:39 AM EDT Oxygen Saturation - - Inhaled Oxygen Concentration - - Weight 133 kg (293 lb) 02/28/2025 9:39 AM EDT Height 175.3 cm (5' 9 ) 02/28/2025 9:39 AM EDT Body Mass Index 43.27 02/28/2025 9:39 AM EDT documented in this encounter Plan of Treatment Upcoming Encounters Date Type Department Care Team (Late st Contact Info) Description 03/01/2025 10:40 AM EDT Office Visit [facility] [address] [place], [place] [phone] 06/08/2025 10:15 AM EDT Office Visit [facility] [address] [place] [address] Amelia Horne MD [address] [place] [address] Scheduled Orders Name Type Priority Associated Diagnoses Orde r Schedule Albumin, Random Urine W/Creatinine Lab Routine Type 2 diabetes mellitus with hyperosmolarity without coma, without long-term current use of insulin (CMS/HCC) Expected: 02/28/2025 (Approximate), Expires: 02/28/2026 Scheduled Referrals Name Type Priority Associated Diagnoses Orde r Schedule Referral to Pharmacy CDTM Outpatient Referral Routine Type 2 diabetes mellitus with hyperosmolarity without coma, without long-term current use of insulin (CMS/HCC) Ordered: 02/28/2025 documented as of this encounter Procedures Procedure Name Priority Date/Time Associated Diagnosis Comments HEPATIC FUNCTION PANEL Routine 02/28/2025 10:20 AM EDT Type 2 diabetes mellitus with hyperosmolarity without coma, without long-term current use of insulin ([facility]) LIPID PANEL, STANDARD Routine 02/28/2025 10:20 AM EDT Type 2 diabetes mellitus with hyperosmolarity without coma, without long-term current use of insulin ([facility]) BASIC METABOLIC PANEL Routine 02/28/2025 10:20 AM EDT Type 2 diabetes mellitus with hyperosmolarity without coma, without long-term current use of insulin ([facility]) POCT GLYCATED HEMOGLOBIN, TOTAL Routine 02/28/2025 9:47 AM EDT Type 2 diabetes mellitus with hyperosmolarity without coma, without long-term current use of insulin ([facility]) POCT GLUCOSE Routine 02/28/2025 9:46 AM EDT Type 2 diabetes mellitus with hyperosmolarity without coma, without long-term current use of insulin ([facility]) documented in this encounter Results * (ABNORMAL) Basic Metabolic Panel (02/28/2025 10:20 AM EDT) Sodium 137 135 - 145 mmol/L [facility] Potassium 4.0 3.3 - 5.1 mmol/L [facility] Chloride 102 96 - 108 mmol/L [facility] Carbon Dioxide 27 22 - 29 mmol/L [facility] Anion Gap 12 12 - 20 [facility] Urea Nitrogen (BUN) 13 9 - 16 mg/dL [facility] Creatinine, Serum 0.88 0.5 - 1.4 mg/dL [facility] Estimated Glomerular Filt Rate >60 [facility] Comment:Chronic Kidney Disea se: Estimated GFR < 60 mL/min/1.81w8Kwhpwa Kidney Disease: Estimated GFR < 15 mL/min/1.73m2 Glucose 140(H) 60 - 115 mg/dL [facility] Calcium 9.7 8.4 - 10.2 mg/dL [facility] Blood Venous blood specimen / Unknown 02/28/2025 10:20 AM EDT 02/28/2025 10:57 AM EDT Amelia Horne MD LAB BLOOD ORDERABLES Final Result Performing Organization Address [facility] Co de Phone Number [facility] [address] [place] [address] [phone] * (ABNORMAL) Lipid Panel, Standard (02/28/2025 10:20 AM EDT) Triglycerides 156(H) <150 mg/dL [facility] Comment:Desirable Triglyceri de: less than 150 mg/dLBorderline High Triglyceride 150-199 mg/dLHigh Triglyceride: 200-499 mg/dLVery High Triglyceride: greater than or equal to 5OO mg/dL Cholesterol 142 <200 mg/dL [facility] Comment:Desirable Cholestero l: less than 200 mg/dLBorderline High Cholesterol: 200-239 mg/dLHigh Cholesterol: greater than 239 mg/dL LDL Cholesterol Calculated 71 <100 mg/dL [facility] Comment:Desirable LDL: less than 100 mg/dLNear Optimal/Above Optimal LDL: 110- 129 mg/dLBorderline High LDL: 130-159 mg/dLHigh LDL: 160-189 mg/dLVery High LDL: greater than or equal to 190 mg/dL HDL Cholesterol 40(L) >40 mg/dL [facility] Comment:Desirable HDL: grea ter than 40 mg/dL Note: This HDL assay may give artificially low results in patients with liver disease. Blood Venous blood specimen / Unknown 02/28/2025 10:20 AM EDT 02/28/2025 10:57 AM EDT Amelia Horne MD LAB BLOOD ORDERABLES Final Result Performing Organization Address City/[facility]/ZIP Co de Phone Number [facility] [address] [place] [address] [phone] * (ABNORMAL) Hepatic Function Panel (02/28/2025 10:20 AM EDT) Bilirubin, Total 0.4 0.0 - 1.0 mg/dL [facility] Bilirubin, Direct 0.1 0.0 - 0.5 mg/dL [facility] Aspartate Amino Transferase 36 5 - 37 U/L [facility] Alanine Aminotransferase 52(H) 0 - 40 U/L [facility] Total Protein 8.3(H) 6.5 - 8.0 g/dL [facility] Albumin Level 4.6 3.5 - 5.0 g/dL [facility] Alkaline Phosphatase 94 39 - 117 U/L [facility] Blood Venous blood specimen / Unknown 02/28/2025 10:20 AM EDT 02/28/2025 10:57 AM EDT us Amelia Horne MD LAB BLOOD ORDERABLES Final Result [facility] [address] [place] [phone] * (ABNORMAL) POCT HGB A1C (02/28/2025 9:47 AM EDT) Hemoglobin A1C 8.7(A) 4.0 - 6.0 % QC Media Lot # [id number] Lot# Expiration Date Blood 02/28/2025 9:47 AM EDT us Amelia Horne MD POINT OF CARE TEST ENTER/E DIT ORDERABLES Final Result * POCT Glucose (02/28/2025 9:46 AM EDT) Glucose Blood, POC 145 60 - 200 mg/dL QC Media Lot # [id number] Lot# Expiration Date Blood Capillary blood specimen / Unknown 02/28/2025 9:46 AM EDT us Amelia Horne MD POINT OF CARE TEST ENTER/E DIT ORDERABLES Final Result documented in this encounter Visit Diagnoses Diagnosis Essential (primary) hypertension- Primary Unspecified essential hypertension Type 2 diabetes mellitus with hyperosmolarity without coma, without long-term current use of insulin (CMS/[facility]) BMI 40.0-44.9, adult (CMS/[facility]) Dietary counseling Dietary surveillance and counseling Exercise counseling Papillary thyroid carcinoma (CMS/[facility]) Mixed hyperlipidemia Stage 3a chronic kidney disease (CMS/[facility]) documented in this encounter Additional Health Concerns Assessment Noted Time PHQ-9 Depression Total Score: 0 02/25/20 24 9:28 AM EDT documented as of this encounter Care Teams Geophysical Laboratory Supervisor Relationship Specialty Start Date End Date Amelia Horne MD [address] [place] [address] PCP - General Family Medicine 05/14/23 documented as of this encounter
--- OUTSIDE RECORDS SUMMARY | 2025-02-28 11:59 | XMS_ITS | Clinical Summary ---
Author Organization [employer] Address [address] [place] [address] Care Team Providers Care Technology Consultant Name Role Phone Amelia Horne MD Primary Care Provider [phone] Allergies Active Allergy Reactions Criticality Noted Date Comments Apple Juice Hives 01/04/2021 Other reaction(s): severe diarrhea Penicillins Anaphylaxis High 04/15/2012 Other reaction(s): Anaphyllactic Medications triamcinolone (Kenalog) 0.1 % creamIndications:O ther atopic dermatitis Apply topically if needed in the morning and at bedtime (pain and swelling). 30 g 2 024 Active ezetimibe (Zetia) 10 MG tabletIndications: Mixed hyperlipidemia Take 1 tablet by mouth every day 90 tablet 3 024 Active rosuvastatin (Crestor) 40 MG tabletIndications: Mixed hyperlipidemia Take 1 tablet by mouth every day 90 tablet 3 024 Active lisinopril-hydroCH LOROthiazide 20-25 MG tabletIndications: Essential (primary) hypertension Take 1 tablet by mouth Once per day. 90 tablet 3 024 Active levothyroxine (Synthroid, Levoxyl) 200 MCG tabletIndications: Acquired hypothyroidism TAKE 1 TABLET BY MOUTH EVERY DAY BEFORE BREAKFAST 90 tablet 025 Active empagliflozin (Jardiance) 10 MGIndications:Type 2 diabetes mellitus with hyperosmolarity without coma, without long-term current use of insulin (CMS/HCC) Take 1 tablet (10 mg) by mouth in the morning. 90 tablet 3 025 Active FREESTYLE LITE test stripIndications:T ype 2 diabetes mellitus with hyperosmolarity without coma, without long-term current use of insulin ([facility]) Check FS daily 100 each 12 025 Active metFORMIN, OSM, (Fortamet) 500 MG 24 hr tabletIndications: Type 2 Diabetes Mellitus Take 1 tablet (500 mg) by mouth Once per day. Do not crush, chew, or split. 90 tablet 3 025 2025 Active FREESTYLE LITE test stripIndications:T ype 2 diabetes mellitus with hyperosmolarity without coma, without long-term current use of insulin ([facility]) Check FS daily 100 each 12 023 2024 Discontinued(R eorder (will not trigger notification to Pharmacy)) metFORMIN, OSM, (Fortamet) 500 MG 24 hr tabletIndications: Type 2 Diabetes Mellitus Take 1 tablet (500 mg) by mouth Once per day. Do not crush, chew, or split. 90 tablet 3 024 2024 Discontinued(R eorder (will not trigger notification to Pharmacy)) Jardiance 10 MGIndications:Type 2 diabetes mellitus with hyperosmolarity without coma, without long-term current use of insulin ([facility]) TAKE 1 TABLET BY MOUTH EVERY DAY IN THE MORNING 30 tablet 11 025 2024 Discontinued(R eorder (will not trigger notification to Pharmacy)) metFORMIN, OSM, (Fortamet) 500 MG 24 hr tabletIndications: Type 2 Diabetes Mellitus Take 1 tablet (500 mg) by mouth Once per day. Do not crush, chew, or split. 90 tablet 3 025 2024 Discontinued Active Problems Problem Noted Date Diagnosed Date Dietary counseling 02/28/2025 Exercise counseling 02/28/2025 BRBPR (bright red blood per rectum) 07/22/2024 Overview (10/06/2024): Reports 2 episodes last week with quite a significant amount of BRBPR. No external hemorrhoids on exam. Pt denied rectal pain. -referred to GI 07/22/24 Assessment & Plan (07/22/2024 10:05 AM EDT): Reports 2 episodes last week with quite a significant amount of BRBPR. No external hemorrhoids on exam. Pt denied rectal pain. -referred to GI 07/22/24 BMI 40.0-44.9, adult 02/25/2024 Overview (02/28/2025): BMI Readings from Last 3 Encounters: 02/28/25 43.27 kg/m?? 10/06/24 43.42 kg/m?? 07/22/24 42.62 kg/m?? Wt Readings from Last 3 Encounters: 02/28/25 293 lb (133 kg) 10/06/24 294 lb (133 kg) 07/22/24 297 lb (135 kg) -Lifestyle modification discussed including nutrition stratgeies and phsycial activity recommendations. -Start Metformin 500 mg 02/28/25 Assessment & Plan (07/22/2024 9:53 AM EDT): Lifestyle modification discussed including nutrition stratgeies and phsycial activity recommendations. -Start Metformin 500 mg Daily in addition to exercising. Assessment & Plan (02/25/2024 9:56 AM EDT): Lifestyle modification discussed including nutrition stratgeies and phsycial activity recommendations. Other specified health status 06/06/2023 Overview (07/22/2024): -next annual evaluation due after 07/22/25 -eye care referral to [facility] on 02/25/2024 -dental encouraged to make an appointment 06/06/2023 -health care proxy filed 02/25/2024 Assessment & Plan (07/22/2024 9:53 AM EDT): -next annual evaluation due after 07/22/25 -eye care referral to [facility] on 02/25/2024 -dental encouraged to make an appointment 06/06/2023 -health care proxy filed 02/25/2024 Assessment & Plan (02/25/2024 9:57 AM EDT): -next physical exam due after 06/06/2024 -eye care referral to [facility] on 02/25/2024 -dental encouraged to make an appointment 06/06/2023 -health care proxy filed 02/25/2024 Assessment & Plan (07/18/2023 10:57 AM EDT): -next physical exam due after 06/06/2024 -eye care list given 07/18/2023. -dental encouraged to make an appointment 06/06/2023. Elevated liver enzymes 05/08/2023 Overview (02/28/2025): Lab Results Component Value Date AST 40 (H) 10/06/2024 AST 232 (H) 01/01/2023 ALT 47 (H) 10/06/2024 ALT 195 (H) 01/01/2023 ALP 83 10/06/2024 DIRECTBILIRU 0.1 10/06/2024 Much improved. -repeating enzymes 07/22/24, enzymes slightly elevated -US 11/19/24Densely echogenic liver. This can be seen with fatty infiltration or medical liver disease. Otherwise, unremarkable abdominal ultrasound. Assessment & Plan (10/06/2024 10:13 AM EST): Lab Results Component Value Date AST 38 (H) 07/22/2024 AST 232 (H) 01/01/2023 ALT 59 (H) 07/22/2024 ALT 195 (H) 01/01/2023 ALP 81 07/22/2024 DIRECTBILIRU 0.1 07/22/2024 Much improved. -repeating enzymes 07/22/24, enzymes slightly elevated will order US of liver 07/23/24 Assessment & Plan (07/23/2024 9:10 AM EDT): Lab Results Component Value Date AST 38 (H) 07/22/2024 AST 232 (H) 01/01/2023 ALT 59 (H) 07/22/2024 ALT 195 (H) 01/01/2023 ALP 81 07/22/2024 DIRECTBILIRU 0.1 07/22/2024 Much improved. -repeating enzymes 07/22/24, enzymes slightly elevated will order US of liver 07/23/24 Assessment & Plan (07/22/2024 10:05 AM EDT): Lab Results Component Value Date AST 45 (H) 07/18/2023 AST 232 (H) 01/01/2023 ALT 76 (H) 07/18/2023 ALT 195 (H) 01/01/2023 ALP 72 07/18/2023 DIRECTBILIRU 0.1 07/18/2023 Much improved. -repeating enzymes 07/22/24 Assessment & Plan (02/25/2024 9:57 AM EDT): Lab Results Component Value Date AST 45 (H) 07/18/2023 AST 232 (H) 01/01/2023 ALT 76 (H) 07/18/2023 ALT 195 (H) 01/01/2023 ALP 72 07/18/2023 DIRECTBILIRU 0.1 07/18/2023 Much improved. Assessment & Plan (07/18/2023 11:08 AM EDT): Lab Results Component Value Date AST 52 (H) 06/06/2023 AST 232 (H) 01/01/2023 ALT 107 (H) 06/06/2023 ALT 195 (H) 01/01/2023 ALP 78 06/06/2023 DIRECTBILIRU 0.2 06/06/2023 -Much improved. Assessment & Plan (06/06/2023 10:09 AM EDT): AST 232; ALT 195 on 01/01/23 Hepatitis panel WNL with Hep B surface antibodies was low. Iron panel and abd US ordered 01/09/23, still pending Assessment & Plan (05/08/2023 8:59 PM EDT): Will task team to check on US order Encouraged pt to expect a call in the next 2 weeks to schedule an appt and if no call to contact the clinic Will order CMP, iron panale, AFP, and CBC Notify results Followup 3 months or sooner PRN with new PCP Type 2 diabetes mellitus wit h hyperosmolarity without coma, without long-term current use of insulin 01/01/2023 Overview (02/28/2025): Diabetes is controlled. Followed by PCP. Collaborative Drug Therapy Managment Program with our [email or web address] since 02/2025. Lab Results Component Value Date HGBA1C 8.7 (A) 02/28/2025 HGBA1C 8.1 (H) 10/06/2024 HGBA1C 7.6 (H) 07/22/2024 Lab Results Component Value Date CREATININE 0.89 07/22/2024 EGFR >60 07/22/2024 MICROALBCREU 4.7 06/10/2023 LDLCHOLCAL 59 10/06/2024 -Sumit/Arb: Lisinopril 20mg -hydrochlorothiazide 25 -Statin therapy: Rosuvastatin 40 mg -Diabetic eye exam: optho list given 07/2023, encouraged to make an appt. 07/22/24 -Diabetic foot exam: 07/22/24 -Continue lifestyle modifications -Continue current medications -Continue Jardiance 10 mg daily -Start Metformin 500 mg, once daily, if having GI side effects will reevaluate. Did not start until 02/28/25 NO GLP1's DUE TO HX OF THYROID CANCER. Assessment & Plan (07/23/2024 9:09 AM EDT): Diabetes is controlled. Followed by PCP. Lab Results Component Value Date HGBA1C 7.6 (H) 07/22/2024 HGBA1C 8.0 (A) 07/22/2024 HGBA1C 6.9 (A) 02/25/2024 Lab Results Component Value Date CREATININE 0.89 07/22/2024 EGFR >60 07/22/2024 MICROALBCREU 4.7 06/10/2023 LDLCHOLCAL 54 07/22/2024 -Sumit/Arb: Lisinopril 20mg -hydrochlorothiazide 25 -Statin therapy: Rosuvastatin 40 mg -Diabetic eye exam: optho list given 07/2023, encouraged to make an appt. 07/22/24 -Diabetic foot exam: 07/22/24 -Continue lifestyle modifications -Continue current medications -Continue Jardiance 10 mg daily -Start Metformin 500 mg, once daily, if having GI side effects will reevaluate. NO GLP1's DUE TO HX OF THYROID CANCER. Assessment & Plan (07/22/2024 10:08 AM EDT): Diabetes is controlled. Followed by PCP. Lab Results Component Value Date HGBA1C 8.0 (A) 07/22/2024 HGBA1C 6.9 (A) 02/25/2024 HGBA1C 7.0 (A) 07/10/2023 Lab Results Component Value Date CREATININE 1.16 06/06/2023 EGFR >60 06/06/2023 MICROALBCREU 4.7 06/10/2023 LDLCHOLCAL 68 06/06/2023 -Sumit/Arb: Lisinopril 20mg -hydrochlorothiazide 25 -Statin therapy: Rosuvastatin 40 mg -Diabetic eye exam: optho list given 07/2023, encouraged to make an appt. 07/22/24 -Diabetic foot exam: 07/22/24 -Continue lifestyle modifications -Continue current medications -Continue Jardiance 10 mg daily -Start Metformin 500 mg, once daily, if having GI side effects will reevaluate. NO GLP1's DUE TO HX OF THYROID CANCER. Assessment & Plan (02/25/2024 9:40 AM EDT): Care managed by DM educator Diabetes is controlled. - Lab Results Component Value Date HGBA1C 6.9 (A) 02/25/2024 HGBA1C 7.0 (A) 07/10/2023 HGBA1C 8.6 (A) 04/21/2023 -No results found for: POCA1C - Lab Results Component Value Date MICROALBUR 10.0 06/10/2023 CREATININE 1.16 06/06/2023 -Sumit/Arb: Lisinopril 20mg -hydrochlorothiazide 25 -Statin therapy: Rosuvastatin 40 mg -Diabetic eye exam: optho list given 07/2023 -Diabetic foot exam: -Continue lifestyle modifications -Continue current medications - Metformin 500 mg - 1 tab Q AM and 2 tabs Q PM. started this dose on 04/29/23. denies any GI upset - Jardiance 10 mg daily -self discontinued metformin in 2021 Assessment & Plan (07/18/2023 11:08 AM EDT): Diabetes is not controlled. - Lab Results Component Value Date HGBA1C 7.0 (A) 07/10/2023 HGBA1C 8.6 (A) 04/21/2023 HGBA1C 7.9 (H) 12/31/2022 -No results found for: POCA1C - Lab Results Component Value Date MICROALBUR 10.0 06/10/2023 CREATININE 1.16 06/06/2023 -Changes: -Sumit/Arb: Lisinopril 20mg -hydrochlorothiazide 25 -Statin therapy: Rosuvastatin 40 mg -Diabetic eye exam: -Diabetic foot exam: -Continue lifestyle modifications -Continue current medications - Metformin 500 mg - 1 tab Q AM and 2 tabs Q PM. started this dose on 04/29/23. denies any GI upset - Jardiance 10 mg daily Assessment & Plan (06/06/2023 10:10 AM EDT): Diabetes is controlled. - Lab Results Component Value Date HGBA1C 8.6 (A) 04/21/2023 HGBA1C 7.9 (H) 12/31/2022 HGBA1C 7.9 (H) 12/19/2022 -No results found for: POCA1C - Lab Results Component Value Date CREATININE 1.17 01/01/2023 -Changes: -Sumit/Arb: -Statin therapy: -Diabetic eye exam: -Diabetic foot exam: -Continue lifestyle modifications -Continue current medications Acquired hypothyroidism 12/11/2022 Overview (02/28/2025): Lab Results Component Value Date TSH 1.04 10/06/2024 TSH 35.44 (H) 01/01/2023 -levothyroxine 200mcg increased to 225mcg on 06/18/23 -repeat on 07/18/23 improved -ordered repeat 07/22/24 which showed TSH is now slightly too low, will stop the added 25mcg of Levothyroxine and go back to 200mcg levothyroxine. Assessment & Plan (10/06/2024 10:12 AM EST): Lab Results Component Value Date TSH 0.12 (L) 07/22/2024 TSH 35.44 (H) 01/01/2023 -levothyroxine 200mcg increased to 225mcg on 06/18/23 -repeat on 07/18/23 improved -ordered repeat 07/22/24 which showed TSH is now slightly too low, will stop the added 25mcg of Levothyroxine and go back to 200mcg levothyroxine. Assessment & Plan (07/23/2024 9:09 AM EDT): Lab Results Component Value Date TSH 0.12 (L) 07/22/2024 TSH 35.44 (H) 01/01/2023 -levothyroxine 200mcg increased to 225mcg on 06/18/23 -repeat on 07/18/23 improved -ordered repeat 07/22/24 which showed TSH is now slightly too low, will stop the added 25mcg of Levothyroxine and go back to 200mcg levothyroxine. Assessment & Plan (07/22/2024 9:52 AM EDT): Lab Results Component Value Date TSH 4.30 (H) 07/18/2023 TSH 35.44 (H) 01/01/2023 -levothyroxine 200mcg increased to 225mcg on 06/18/23 -repeat on 07/18/23 improved -ordered repeat 07/22/24 Assessment & Plan (02/25/2024 9:55 AM EDT): Lab Results Component Value Date TSH 4.30 (H) 07/18/2023 TSH 35.44 (H) 01/01/2023 -levothyroxine 200mcg increased to 225mcg on 06/18/23 -repeat improved Assessment & Plan (07/18/2023 9:43 AM EDT): Lab Results Component Value Date TSH 25.18 (H) 06/06/2023 TSH 35.44 (H) 01/01/2023 -levothyroxine 200mcg increased to 225mcg on 06/18/23 -recheck TSH 4-6 weeks Assessment & Plan (06/06/2023 10:09 AM EDT): Pt reports he has stopped taking excess Levothyroxine. Only take 1 pill every day 200mcg. TSH 95 on 12/19/22, corrected pt taking too much medicine. Checked again on 01/01/23 and Last TSH was 35.44. Still high but much improved. Thyroid labs ordered 01/09/23, pending. Assessment & Plan (05/08/2023 8:46 PM EDT): Will order TSH w/ reflex again today Notify results Continue levothyroxine 200 mcg F/u 3 months or sooner with new PCP Stage 3a chronic kidney disease 10/03/2022 Overview (02/28/2025): Creatinine, Serum Date Value Ref Range Status 07/22/2024 0.89 0.5 - 1.4 mg/dL Final Assessment & Plan (02/25/2024 9:55 AM EDT): Creatinine Date Value Ref Range Status 06/06/2023 1.16 0.5 - 1.4 mg/dL Final Hyperlipidemia 05/10/2022 Overview (02/28/2025): Lab Results Component Value Date CHOL 124 10/06/2024 CHOL 119 07/22/2024 TRIG 146 10/06/2024 TRIG 169 (H) 07/22/2024 TRIG 213 (H) 12/19/2022 HDL 36 (L) 10/06/2024 HDL 32 (L) 07/22/2024 LDLCHOLCAL 59 10/06/2024 LDLCHOLCAL 54 07/22/2024 -continue lifestyle modification -HDL slightly low and Triglycerides slightly elevated. Discussed to continue back with regular exercising and if Triglycerides do not stabilize will consider starting pt on fish oil. Assessment & Plan (07/23/2024 9:07 AM EDT): Lab Results Component Value Date CHOL 119 07/22/2024 CHOL 129 06/06/2023 TRIG 169 (H) 07/22/2024 TRIG 129 06/06/2023 TRIG 213 (H) 12/19/2022 HDL 32 (L) 07/22/2024 HDL 36 06/06/2023 LDLCHOLCAL 54 07/22/2024 LDLCHOLCAL 68 06/06/2023 -continue lifestyle modifications -HDL slightly low and Triglycerides slightly elevated. Discussed to continue back with regular exercising and if Triglycerides do not stabilize will consider starting pt on fish oil. Assessment & Plan (07/22/2024 10:04 AM EDT): Lab Results Component Value Date CHOLESTEROL 190 12/19/2022 LDLCHOL 110 (H) 12/19/2022 TRIG 129 06/06/2023 TRIG 213 (H) 12/19/2022 HDLCHOL 47 12/19/2022 CHOLHDLRAT 4.0 12/19/2022 -continue lifestyle modifications -ordered FLP 07/22/24 Assessment & Plan (02/25/2024 9:57 AM EDT): Lab Results Component Value Date CHOLESTEROL 190 12/19/2022 LDLCHOL 110 (H) 12/19/2022 TRIG 129 06/06/2023 TRIG 213 (H) 12/19/2022 HDLCHOL 47 12/19/2022 CHOLHDLRAT 4.0 12/19/2022 -continue lifestyle modifications Assessment & Plan (07/18/2023 11:08 AM EDT): Lab Results Component Value Date CHOLESTEROL 190 12/19/2022 LDLCHOL 110 (H) 12/19/2022 TRIG 129 06/06/2023 TRIG 213 (H) 12/19/2022 HDLCHOL 47 12/19/2022 CHOLHDLRAT 4.0 12/19/2022 -continue lifestyle modifications Essential (primary) hypertension 05/10/2022 Overview (02/25/2024): -Blood pressure is at goal -Continue lifestyle modifications -Continue current medications Assessment & Plan (10/06/2024 10:12 AM EST): -Blood pressure is at goal -Continue lifestyle modifications -Continue current medications Assessment & Plan (07/22/2024 9:57 AM EDT): -Blood pressure is at goal -Continue lifestyle modifications -Continue current medications Assessment & Plan (02/25/2024 9:49 AM EDT): -Blood pressure is at goal -Continue lifestyle modifications -Continue current medications Assessment & Plan (07/18/2023 9:44 AM EDT): Not following low salt diet. Often forgets to take meds Diastolic often runs >100. Not checking BP at home. Lisinopril-hydrochlorothiazide 20mg/25mg = new dose 05/08/23 Assessment & Plan (06/06/2023 10:09 AM EDT): Not following low salt diet. Often forgets to take meds Diastolic often runs >100. Not checking BP at home. Lisinopril-hydrochlorothiazide 20mg/25mg = new dose 05/08/23 Assessment & Plan (05/08/2023 8:53 PM EDT): BP 156/101 elevated at clinic today Rechecked by RN manual 139/101 Discussed importance of taking med daily Will increase dose Lisinopril-hydrochlorothiazide 20mg/25mg Discussed importance of checking BP daily, log results RTC 2 weeks to check BP Papillary thyroid carcinoma 01/04/2021 Overview (05/08/2023): Total Thyroidectomy 2019 Assessment & Plan (02/25/2024 9:56 AM EDT): Total Thyroidectomy 2019 Assessment & Plan (07/18/2023 9:44 AM EDT): Total Thyroidectomy 2019 Assessment & Plan (06/06/2023 10:09 AM EDT): Total Thyroidectomy 2019 Assessment & Plan (05/08/2023 8:45 PM EDT): F/u PRN with new PCP Backache 03/20/2012 Resolved Problems Problem Noted Date Diagnosed Date Resolved Date Prediabetes 05/10/2022 05/08/2023 Chronic kidney disease 01/04/202105/08 Encounters Date Type Department Care Team Description 02/28/2025 9:45 AM EDT Office Visit [address] [address] Amelia Horne MD Essential (primary) hypertension (Primary Dx); Type 2 diabetes mellitus with hyperosmolarity without coma, without long-term current use of insulin (CMS/HCC); BMI 40.0-44.9, adult (CMS/HCC); Dietary counseling; Exercise counseling; Papillary thyroid carcinoma (CMS/HCC); Mixed hyperlipidemia; Stage 3a chronic kidney disease (CMS/HCC) 02/28/[address] [address] Amelia Horne MD 02/28/2025 Travel 02/24/[address] [address] Amelia Horne MD Chartprep 02/16/2025 Patient Outreach [address] [address] Amelia Horne MD Pre-visit Planning (SDOH screening completed on 12/28/24) 01/28/[address] [address] Amelia Horne MD Type 2 diabetes mellitus with hyperosmolarity without coma, without long-term current use of insulin ([facility]/HCC) 12/28/2024 Patient Outreach [address] [address] Amelia Horne MD Care Coordination ([facility] outreach for SDOH housing search-referral completed ) 12/28/2024 Patient Outreach [address] [address] Amelai Horne MD Pre-visit Planning (SDOH Screening positive and Tobacco screening negative) 12/18/2024 Refill [facility] [address] [place] [address] Amelia Horne MD Acquired hypothyroidism from Last 3 Months Immunizations Name Administration Dates Next Due DTaP 02/04/2006, 9,06/03/1996,10/03,09/03/1995,1994 HPV, Quadrivalent 04/18/2010,02/14/2010 Hep B, Adolescent or Pediatric 05/03/1998,1996,06/03/1996 Hib (HbOC) 06/03/1996, 6,10/03/1995,07/04 IPV 06/03/1996, 6,10/03/1995,07/04 Influenza injectable quadriv alent preservative free 07/18/2023 Influenza, Split (incl. rufino fied surface antigen) 09/15/2013 Influenza, seasonal, injecta ble, preservative free 07/22/2024,08/12/2019,08/13/2018 MMR 09/03/1995,1994 Meningococcal MPSV4 02/05/2004 Pfizer Covid-19 Vaccine 12+ 07/22/2024 Pneumococcal Conjugate PCV 20 06/06/2023 Tdap 06/06/2023 Varicella 02/14/2010 Family History Medical History Relation Name Comments Diabetes Mother Diabetes Sister Sleep apnea Sister Relation Name Status Comments Mother Sister Social History Tobacco Use Types Packs/Day Years Used Date Smoking Tobacco: Never Smokeless Tobacco: Never Tobacco Cessation:Counseling Given: Not Answered Alcohol Answer Date Recorded How often do [...] Orientation Straight 09/02/2022 10 :17 AM EDT Last Filed Vital Signs Vital Sign Reading Time Taken Comments Blood Pressure 135/81 02/28/2025 9:39 AM EDT Pulse 99 02/28/2025 9:39 AM EDT Temperature 36.2 ??C (97.2 ??F) 10/06/2024 10:[address] Respiratory Rate 20 02/28/2025 9:39 AM EDT Oxygen Saturation 98% 07/22/2024 9:38 AM EDT Inhaled Oxygen Concentration - - Weight 133 kg (293 lb) 02/28/2025 9:39 AM EDT Height 175.3 cm (5' 9 ) 02/28/2025 9:39 AM EDT Body Mass Index 43.27 02/28/2025 9:39 AM EDT Plan of Treatment Upcoming Encounters Date Type Department Care Team (Late st Contact Info) Description 03/01/2025 10:40 AM EDT Office Visit [facility] [address] [place], [place] [id number] 06/08/2025 10:15 AM EDT Office Visit [facility] [address] [place] [address] Amelia Horne MD [address] [place] [address] Health Maintenance Due Date Last Done Comments Eye Exam 02/08/2004 Diabetes: Urine Protein Screening 06/10/2024 02/28/2025, 06/10/2023 Diabetes: Hemoglobin A1C 05/30/2025 025, 10/06/2024, 07/22/2024, Additional history exists Diabetes: Foot Exam 07/22/2025 07/22/2024, 07/22/2024, 07/22/2024, Additional history exists Family Planning (PISQ) 07/23/2025 07/23/2024 Alcohol/Substance Use Screening 10/06/2025 10/06/2024 SDOH Screening 12/28/2025 12/28/2024 Depression Screening 02/28/2026 02/28/2025, 02/25/20 24 Lipid Panel 02/28/2026 02/28/2025, 02/2024, 07/22/2024, Additional history exists Tobacco Screening 02/28/2026 02/28/2025 DTaP/Tdap/Td Vaccines (8 - Td or Tdap) 06/06/2033 06/06/2023, 02/04/2006, 09/07/1999, Additional history exists Zoster Vaccines (1 of 2) 02/08/2044 RSV Patients and Patients Aged 60 years or older (1 - 1-dose 75+ series) 2069 HIB Vaccines Completed 06/03/1996, 11/1995, 10/03/1995, Additional history exists IPV Vaccines Completed 06/03/1996, 11/1995, 10/03/1995, Additional history exists Hepatitis B Vaccines Completed 05/03/1998, 01/01/1997, 06/03/1996 Meningococcal Vaccine Aged Out 02/05/2004 No gil lizette eligible based on patient's age to complete this topic HPV Vaccines Discontinued 04/18/2010, 02/14/2010 HIV Screening Completed 06/06/2023 Pneumococcal Vaccine: Pediatrics (0 to 5 Years) and At-Risk Patients (6 to 49) Years) Completed 06/06/2023 COVID-19 Vaccine Completed 07/22/2024, 03/23/2021 Hepatitis C Screening Completed 07/22/2024 , 06/06/2023, 12/31/2022 Influenza Vaccine Completed 07/22/2024, , 08/12/2019, Additional history exists Hepatitis A Vaccines Aged Out No long er eligible based on patient's age to complete this topic RSV under 20 months Aged Out No longe r eligible based on patient's age to complete this topic Rotavirus Vaccines Aged Out No longer eligible based on patient's age to complete this topic Procedures Procedure Name Priority Date/Time Associated Diagnosis Comments BASIC METABOLIC PANEL Routine 02/28/2025 10:20 AM EDT Type 2 diabetes mellitus with hyperosmolarity without coma, without long-term current use of insulin (CMS/HCC) LIPID PANEL, STANDARD Routine 02/28/2025 10:20 AM EDT Type 2 diabetes mellitus with hyperosmolarity without coma, without long-term current use of insulin (CMS/HCC) HEPATIC FUNCTION PANEL Routine 02/28/2025 10:20 AM EDT Type 2 diabetes mellitus with hyperosmolarity without coma, without long-term current use of insulin (CMS/HCC) ALBUMIN, RANDOM URINE W/CREATININE Routine 02/28/2025 10:20 AM EDT Type 2 diabetes mellitus with hyperosmolarity without coma, without long-term current use of insulin (CMS/HCC) POCT GLYCATED HEMOGLOBIN, TOTAL Routine 02/28/2025 9:47 AM EDT Type 2 diabetes mellitus with hyperosmolarity without coma, without long-term current use of insulin (CMS/HCC) POCT GLUCOSE Routine 02/28/2025 9:46 AM EDT Type 2 diabetes mellitus with hyperosmolarity without coma, without long-term current use of insulin (CMS/HCC) HEPATITIS PANEL, GENERAL Routine 07/22/2024 10:32 AM EDT Elevated liver enzymes HIV ANTIBODY/ANTIGEN ([place] [facility]) Routine 06/06/2023 10:41 AM EDT from Last 3 Months or Most Recently Relevant to Health Maintenance Results * Albumin, Random Urine W/Creatinine (02/28/2025 10:20 AM EDT) Creatinine, Urine 52.86 mg/dL [facility] Microalbumin Urine <5.0 mg/L [facility] Microalbum Creatinine Ratio Ur TNP <30 ug/mg cr [facility] Comment:Unable to calculate albumin/creatinine ratio due to lowmicroalbumin or creatinine result. Urine 02/28/2025 10:2 0 AM EDT 02/28/2025 11:03 AM EDT Amelia Horne MD LAB URINE ORDERABLES Final Result Performing Organization Address [facility] Co de Phone Number [facility] [address] [place] [phone] * (ABNORMAL) Hepatic Function Panel (02/28/2025 10:20 AM EDT) Bilirubin, Total 0.4 0.0 - 1.0 mg/dL [facility] Bilirubin, Direct 0.1 0.0 - 0.5 mg/dL [facility] Aspartate Amino Transferase 36 5 - 37 U/L [facility] Alanine Aminotransferase 52(H) 0 - 40 U/L [facility] Total Protein 8.3(H) 6.5 - 8.0 g/dL [facility] Albumin Level 4.6 3.5 - 5.0 g/dL [facility] Alkaline Phosphatase 94 39 - 117 U/L [facility] Blood Venous blood specimen / Unknown 02/28/2025 10:20 AM EDT 02/28/2025 10:57 AM EDT Amelia Horne MD LAB BLOOD ORDERABLES Final Result Performing Organization Address City/[facility]/ZIP Co de Phone Number [facility] [address] [place] [phone] * (ABNORMAL) Lipid Panel, Standard (02/28/2025 10:20 AM EDT) Triglycerides 156(H) <150 mg/dL [facility] Comment:Desirable Triglyceri de: less than 150 mg/dLBorderline High Triglyceride 150-199 mg/dLHigh Triglyceride: 200-499 mg/dLVery High Triglyceride: greater than or equal to 5OO mg/dL Cholesterol 142 <200 mg/dL [facility] Comment:Desirable Cholestero l: less than 200 mg/dLBorderline High Cholesterol: 200-239 mg/dLHigh Cholesterol: greater than 239 mg/dL LDL Cholesterol Calculated 71 <100 mg/dL [facility] Comment:Desirable LDL: less than 100 mg/dLNear Optimal/Above Optimal LDL: 110- 129 mg/dLBorderline High LDL: 130-159 mg/dLHigh LDL: 160-189 mg/dLVery High LDL: greater than or equal to 190 mg/dL HDL Cholesterol 40(L) >40 mg/dL [facility] Comment:Desirable HDL: great er than 40 mg/dL Note: This HDL assay may give artificially low results in patients with liver disease. Blood Venous blood specimen / Unknown 02/28/2025 10:20 AM EDT 02/28/2025 10:57 AM EDT us Amelia Horne MD LAB BLOOD ORDERABLES Final Result [facility] [address] [place] [phone] * (ABNORMAL) Basic Metabolic Panel (02/28/2025 10:20 AM EDT) Sodium 137 135 - 145 mmol/L [facility] Potassium 4.0 3.3 - 5.1 mmol/L [facility] Chloride 102 96 - 108 mmol/L [facility] Carbon Dioxide 27 22 - 29 mmol/L [facility] Anion Gap 12 12 - 20 [facility] Urea Nitrogen (BUN) 13 9 - 16 mg/dL [facility] Creatinine, Serum 0.88 0.5 - 1.4 mg/dL [facility] Estimated Glomerular Filt Rate >60 [facility] Comment:Chronic Kidney Disea se: Estimated GFR < 60 mL/min/1.69j4Clutyi Kidney Disease: Estimated GFR < 15 mL/min/1.73m2 Glucose 140(H) 60 - 115 mg/dL [facility] Calcium 9.7 8.4 - 10.2 mg/dL [facility] Blood Venous blood specimen / Unknown 02/28/2025 10:20 AM EDT 02/28/2025 10:57 AM EDT Amelia Horne MD LAB BLOOD ORDERABLES Final Result [facility] [address] [place] [phone] * (ABNORMAL) POCT HGB A1C (02/28/2025 9:47 AM EDT) Pathologist [facility] Hemoglobin A1C 8.7(A) 4.0 - 6.0 % QC Media Lot # [id number] Lot# Expiration Date Blood 02/28/2025 9:47 AM EDT Amelia Horne MD POINT OF CARE TEST ENTER/E DIT ORDERABLES Final Result * POCT Glucose (02/28/2025 9:46 AM EDT) Pathologist [facility] Glucose Blood, POC 145 60 - 200 mg/dL QC Media Lot # [id number] Lot# Expiration Date Blood Capillary blood specimen / Unknown 02/28/2025 9:46 AM EDT Amelia Horne MD POINT OF CARE TEST ENTER/E DIT ORDERABLES Final Result * Hepatitis Panel, General (07/22/2024 10:32 AM EDT) Pathologist [facility] Hepatitis A IgM Nonreactive Nonreactive [facility] Comment:IgM antibodies to HOWARD V not detected; does not exclude earlyacute or recovered HAV infection. ~Hepatitis B Surface Antibody NONREACTIVE Nonreactive [facility] Comment:Nonreactive: < 8.00 mIU/mL Hepatitis B Core Antibody Nonreactive Nonreactive [facility] Hepatitis C Antibody Nonreactive Nonreactive [facility] Comment:Antibodies to HCV no t detected; does not exclude early acuteHCV infection. Hepatitis B Surface Ag Negative Negative [facility] Blood Venous blood specimen / Unknown 07/22/2024 10:32 AM EDT 07/22/2024 11:16 AM EDT Amelia Horne MD LAB BLOOD ORDERABLES Final Result Performing Organization Address [facility] Co de Phone Number [facility] [address] [place] [phone] * HIV Ab/Ag ([facility]) (06/06/2023 10:41 AM EDT) [facility] HIV AB/AG Nonreactive Nonreactive [facility] Comment:HIV-1 p24 Ag and/or HIV-1/HIV-2 Ab not detected.A test result that is nonreactive does not exclude thepossibility of exposure to or infection with HIV-1 and/orHIV-2. Nonreactive results in this assay for individualswith prior exposure to HIV-1 and/or HIV-2 may be due toantigen and antibody levels that are below the limit ofdetection of this assay.[employer] HIV Ag/Ab Combo assay result andsupplemental assay results should be interpreted inconjunction with the patient's clinical presentation,history and other laboratory results. If the results areinconsistent with clinical evidence, additional testing issuggested to confirm the result. 06/06/2023 10:4 1 AM EDT 06/06/2023 11:23 AM EDT Amelia Horne MD LAB BLOOD ORDERABLES Final Result Performing Organization Address [facility] Co de Phone Number [facility] [address] [place] [phone] from Last 3 Months or Most Recently Relevant to Health Maintenance Insurance [facility] Advance Directives Documents on File Type Date Recorded Patient Coding Auditor Expl anation Advance Directives and Living Will 02/25/2024 Health Care Proxy 02/25/24 Care Teams Technology Consultant Relationship Specialty Start Date End Date A[place], MD Amelia [address] [place] [phone] PCP - General Family Medicine 05/14/23
--- OUTSIDE RECORDS SUMMARY | 2025-02-28 11:59 | XMS_ITS | Encounter Summary ---
Author Organization [employer] Address [address] [place] [address] Care Team Providers Care Health Plan Advisor Name Role Phone Amelia Horne MD Primary Care Provider [phone] Encounter Details Date Type Department Care Team (Latest Contact Info) Description 02/28/2025 Travel Social History Tobacco Use Types Packs/Day Years [...] is your housing situation today? I have zeyadmera gonzalez 02/25/[address] you [...] t he electric, gas, oil or water [employer] threatened to shut off services in your [...] Description 03/01/2025 10:40 AM EDT Office Visit [facility] OPTOMETRY [address] [place] [address] 06/08/2025 10:15 AM EDT Office Visit [facility] MEDICINE [address] [place] [phone] Amelia Horne MD [address] [place] [address] documented as of this encounter Visit Diagnoses Not on filedocumented in this encounter Additional Health Concerns Assessment Noted Time PHQ-9 Depression Total Score: 0 02/25/20 24 9:28 AM EDT documented as of this encounter Care Teams Health Plan Advisor Relationship Specialty Start Date End Date Amelia Horne MD [address] [place] [phone] PCP - General Family Medicine 05/14/23 documented as of this encounter
== END 2025-02-28 10:19 | disposition home or self-care (01) ==
LOC: HO.HHCL 10:18
PROVIDERS: Visit Provider Family Medicine
DX: E11.00 Type 2 diabetes mellitus with hyperosmolarity without nonketotic hyperglycemic-hyperosmolar coma (NKHHC) (principal)
CPT/HCPCS: 36415; 80048; 80061; 80076; 82570